=== PATIENT | male | born 1975 | race Caucasian/White ===

== ENCOUNTER 2017-02-07 05:05 | Emergency (ER) | payer SELFPAY ==
[~2017-02-07] VITALS: Ht 188 cm; Wt 93.3 kg
[2017-02-07] MEDS ORDERED: SODIUM CHLORIDE 0.9% 1,000ML IVBOLUS ONE (05:30)
[2017-02-07] MEDS: AMPICILLIN/SULBACTAM 3 GM in SODIUM CHLORIDE 0.9% 100 ML IV ONE ×2 (05:30→07:03)
[2017-02-07] MEDS ORDERED: SODIUM CHLORIDE FLUSH 10ML SYR IVF ONE (05:30)
[2017-02-07] MEDS ORDERED: DIPH,PERTUSS(ACELL),TET VAC/PF 0.5 ML IM-VACC ONE ×2 (05:30→06:36)
[2017-02-07] MEDS ORDERED: HYDROmorphone 1 MG/ML, 1ML ONE (07:39)
[2017-02-07] MEDS ORDERED: ONDANSETRON 2MG/ML, 2ML ONE (07:39)
[2017-02-07] MEDS ORDERED: LIDOCAINE 1%, 20ML ONE (07:39)
[2017-02-07] MEDS ORDERED: LIDOCAINE 1%-EPI 1:100K, 20ML INFIL ONE (08:00)
[2017-02-07] MEDS ORDERED: ONDANSETRON 2MG/ML, 2ML IVPush ONE (08:00)
[2017-02-07] MEDS ORDERED: HYDROmorphone 1 MG/ML, 1ML IVPush PRN (08:00)
[2017-02-07 08:14] VITALS: BP 126/92
== END 2017-02-07 08:19 | disposition home or self-care (01) ==
LOC: ED 06:00
DX: L03.114 Cellulitis of left upper limb (principal); Z23 Encounter for immunization
CPT/HCPCS: 10060; 36415; 73030; 76882; 85025; 87040; 90471; 90715; 96365; 96375; 99285; J0295; J1170; J2405; J3490; J7030

== ENCOUNTER 2017-02-08 09:52 | Emergency (ER) | payer SELFPAY ==
[~2017-02-08] VITALS: Ht 188 cm; Wt 91.0 kg
[2017-02-08 09:54] VITALS: BP 130/84
== END 2017-02-08 12:05 | disposition home or self-care (01) ==
LOC: ED 11:05
DX: L02.414 Cutaneous abscess of left upper limb (principal)
CPT/HCPCS: 99283

== ENCOUNTER 2017-02-13 12:41 | Emergency (ER) | payer SELFPAY ==
[~2017-02-13] VITALS: Ht 190.5 cm; Wt 91.2 kg
[2017-02-13 12:43] VITALS: BP 141/81
== END 2017-02-13 14:21 | disposition home or self-care (01) ==
LOC: ED 14:15
DX: L02.414 Cutaneous abscess of left upper limb (principal)
CPT/HCPCS: 99281

== ENCOUNTER 2019-01-01 16:51 | Emergency (ER) | payer MEDICAID ==
[~2019-01-01] VITALS: Ht 188 cm; Wt 99.3 kg
[2019-01-01 16:54] VITALS: BP 125/77
[2019-01-01] MEDS ORDERED: LIDOCAINE 1%-EPI 1:100K, 20ML SQ ONE (17:30)
[2019-01-01] MEDS ORDERED: LIDOCAINE-MPF 1%, 5ML ONE (17:35)
--- NOTE | 2019-01-01 18:14 | NUR ---
Discharge instructions discussed with patient including when to return to emergency department, patient verbalizes understanding. Prescriptions provided with instruction for use.
== END 2019-01-01 18:17 | disposition home or self-care (01) ==
LOC: ED 18:04
DX: L02.413 Cutaneous abscess of right upper limb (principal); F11.10 Opioid abuse, uncomplicated
CPT/HCPCS: 10060; 99283

== ENCOUNTER 2019-08-26 20:23 | Emergency (ER) | payer SELFPAY ==
[~2019-08-26] VITALS: Ht 188 cm; Wt 100.0 kg
[2019-08-26 20:27] VITALS: BP 127/79
[2019-08-26] MEDS ORDERED: LIDOCAINE-MPF 1%, 5ML ONE (20:49)
--- NOTE | 2019-08-26 20:54 | NUR ---
LIDOCAINE GIVEN TO PROVIDER FOR ADMINISTRATION
[2019-08-26] MEDS ORDERED: LIDOCAINE 1%, 10ML INFIL ONE (21:00)
== END 2019-08-26 21:44 | disposition home or self-care (01) ==
LOC: ED 21:35
DX: L02.415 Cutaneous abscess of right lower limb (principal); L03.115 Cellulitis of right lower limb; F11.90 Opioid use, unspecified, uncomplicated
CPT/HCPCS: 10060; 99283; J3490

== ENCOUNTER 2021-04-26 21:46 | Emergency (ER) | payer MEDICAID, OTHER ==
[~2021-04-26] VITALS: Ht 188 cm; Wt 100.5 kg
[2021-04-26 21:51] VITALS: BP 147/99
--- NOTE | 2021-04-26 23:08 | NUR ---
After Xrays done, pt admitted he isnt having any sort of chest pain or symptoms, he is simply here because he needs to get a covid test before he leaves for [place] tomorrow.
--- NOTE | 2021-04-26 23:50 | NUR ---
PER [employer]ARM REPORTER NIL X 1
--- NOTE | 2021-04-27 00:06 | NUR ---
NIL X 2
--- NOTE | 2021-04-27 00:20 | NUR ---
NA X 3
== END 2021-04-27 00:22 | disposition left against medical advice (07) ==
LOC: ED 22:15
DX: R06.02 Shortness of breath (principal); R07.89 Other chest pain; Z20.822 Contact with and (suspected) exposure to COVID-19
CPT/HCPCS: 71045; 93005; 99285; U0003; U0005